=== PATIENT | female | born 1980 | race Caucasian/White ===

== ENCOUNTER 2020-10-02 07:12 | Emergency (ER) | payer OTHER ==
[2020-10-02 09:05] LABS: HEMOGLOBIN 14.5 gm/dl (12.3-15.3); RED BLOOD COUNT 4.7 M/UL (4.00-5.10); WHITE BLOOD COUNT 10.1 K/UL (4.5-11.0)
[2020-10-02 09:28] LABS: BUN/CREATININE RATIO 22 (0-10)
[2020-10-02] MEDS ORDERED: ENDOCET 5-3251 EACH PO ×2 (10:01→12:15)
[2020-10-02] MEDS ORDERED: ZOFRAN ODT 4 MG4 MG SL ×2 (10:01→12:15)
== END 2020-10-02 10:36 | disposition home or self-care (01) ==
LOC: ER1 07:12
PROVIDERS: Emergency Medicine
DX: N13.2 Hydronephrosis with renal and ureteral calculous obstruction (principal)
CPT/HCPCS: 80053; 81001; 83690; 84703; 85025; 96374; 96375; 99284; J1885; J2270; J2405; J7030

== ENCOUNTER 2020-11-19 21:06 | Emergency (ER) | payer OTHER ==
[~2020-11-19 21:06] MED LIST: ENDOCET 5-3251 EACH PO; ZOFRAN ODT 4 MG4 MG SL
[2020-11-20] MEDS ORDERED: CYCLOBENZAPRINE10 MG PO (02:35)
[2020-11-20] MEDS ORDERED: NAPROSYN500 MG PO (02:35)
== END 2020-11-20 02:45 | disposition home or self-care (01) ==
LOC: ER1 21:06
DX: S16.1XXA Strain of muscle, fascia and tendon at neck level, initial encounter (principal); S33.5XXA Sprain of ligaments of lumbar spine, initial encounter; S13.4XXA Sprain of ligaments of cervical spine, initial encounter; S23.3XXA Sprain of ligaments of thoracic spine, initial encounter; F17.200 Nicotine dependence, unspecified, uncomplicated; Z90.710 Acquired absence of both cervix and uterus; Z86.16 Personal history of COVID-19; X50.9XXA Other and unspecified overexertion or strenuous movements or postures, initial encounter
CPT/HCPCS: 72072; 72100; 72125; 96372; 99284; J1885

== ENCOUNTER → 2020-12-07 | Outpatient (CLI) | payer OTHER ==
[~2020-12-07] MED LIST changes: +CYCLOBENZAPRINE10 MG PO; +NAPROSYN500 MG PO
== END ==
LOC: EXRD 12:59
DX: M54.5 Low back pain (principal); M62.838 Other muscle spasm; M54.2 Cervicalgia; M54.6 Pain in thoracic spine; M25.561 Pain in right knee; M25.562 Pain in left knee; M17.0 Bilateral primary osteoarthritis of knee; M79.641 Pain in right hand; M79.642 Pain in left hand; M19.042 Primary osteoarthritis, left hand; M19.041 Primary osteoarthritis, right hand; Z87.39 Personal history of other diseases of the musculoskeletal system and connective tissue
CPT/HCPCS: 72040; 72070; 72100; 73130; 73564

== ENCOUNTER → 2021-05-14 | Outpatient (CLI) | payer OTHER ==
[~2021-05-14] MED LIST changes: +CYCLOBENZAPRINE5 MG PO
== END ==
LOC: EMI 09:48
DX: G40.209 Localization-related (focal) (partial) symptomatic epilepsy and epileptic syndromes with complex partial seizures, not intractable, without status epilepticus (principal)
CPT/HCPCS: 70553; A9577

== ENCOUNTER 2021-06-14 13:01 | Emergency (ER) | payer OTHER ==
[~2021-06-14 13:01] MED LIST changes: -CYCLOBENZAPRINE5 MG PO
[2021-06-14] MEDS ORDERED: CYCLOBENZAPRINE5 MG PO (16:31)
== END 2021-06-14 16:50 | disposition home or self-care (01) ==
LOC: ER1 13:01
DX: S39.012A Strain of muscle, fascia and tendon of lower back, initial encounter (principal); I10 Essential (primary) hypertension; F17.200 Nicotine dependence, unspecified, uncomplicated; X50.9XXA Other and unspecified overexertion or strenuous movements or postures, initial encounter
CPT/HCPCS: 72131; 96372; 99283; J1100